=== PATIENT | female | born 1950 | race Caucasian/White ===

== ENCOUNTER → 2017-08-21 10:46 | Outpatient (REF) | payer MEDICARE, SELFPAY ==
[2017-08-21 14:20] LABS: Basophils # 0.1 K/mm3 (0-0.2); Basophils % 1.4 % (0.1-2.0); Eosinophils # 0.1 K/mm3 (0.0-0.4); Hematocrit 46.2 % (37.0-47.0); Hemoglobin 14.3 g/dL (12.2-16.2); Lymphocytes # 1.4 K/mm3 (0.7-4.5); Lymphocytes % 35.6 K/mm3 (10-50); Mean Corpuscular Hemoglobin 29.2 pg (27.0-31.2); Mean Corpuscular Volume 94.2 fl (81-99); Mean Platelet Volume 9.4 fl (7.4-10.4); Monocytes # 0.3 K/mm3 (0.1-1.0); Monocytes % 7.6 % (1.7-9.3); Neutrophils % 52.4 % (37.0-80.0); Platelet Count 212 K/mm3 (142-424); Red Cell Distribution Width 13.1 % (11.5-17.5); White Blood Count 3.8 K/mm3 (4.8-10.8)
[2017-08-21 15:12] LABS: Alanine Aminotransferase 31 U/L (12-78); Albumin Level 3.7 gm/dL (3.4-5.0); Albumin/Globulin Ratio 1.2 (1.1-1.8); Alkaline Phosphatase 86 U/L (46-116); Anion Gap 8.8 mEq/L (5-15); Aspartate Amino Transferase 18 U/L (15-37); Bilirubin,Total 0.8 mg/dL (0.2-1.0); Blood Urea Nitrogen 23 mg/dL (7-18); Calcium 9.4 mg/dL (8.5-10.1); Carbon Dioxide 30 mmol/L (21.0-32.0); Chloride 107 mmol/L (98-107); Chol/HDL Ratio 2.6 (1-3.5); Cholesterol 189 mg/dL (140-200); Creatinine,Serum 1.34 mg/dL (0.55-1.02); Estimated Glomerular Filt Rate 40 ml/min (>60); Free T4 (Free Thyroxine) 1.07 ng/dl (0.76-1.46); GFR (African American) 48 ML/MIN (>60); Glucose 93 mg/dL (74-106); HDL Cholesterol 73 mg/dL (29-89); LDL Cholesterol 100 mg/dL (0-130); Potassium 4.8 mmoL/L (3.5-5.1); Sodium 141 mmol/L (136-145); Thyroid Stimulating Hormone 1.09 uIU/ml (0.358-3.740); Total Protein,Serum 6.7 gm/dL (6.4-8.2); Triglycerides 80 mg/dL (30-200); VLDL Cholesterol 16 mg/dL (0-40)
== END ==
LOC: LAB 10:46
PROVIDERS: Visit Provider Emergency Medicine
DX: I10 Essential (primary) hypertension (principal)
CPT/HCPCS: 80053; 80061; 84439; 84443; 85025

== ENCOUNTER → 2017-09-13 09:31 | Outpatient (CLI) | payer MEDICARE, SELFPAY ==
--- NOTE | 2017-09-13 09:35 | CA_ITS ---
PROCEDURE: 2-D M-mode and color Doppler study INDICATIONS FOR THE TEST: Chest pain COPD Heart MurmurX Tobacco Smoking Palpitations Fatigue Syncope Edema HypertensionXDiabetes Mellitus Rheumatic Fever SOB SERVIN Obesity HyperlipidemiaX Family History HD Additional History PATIENT INFORMATION HEIGHT: 61 WEIGHT:146 GENDER: Female B/P:120/82 2-D/M-MODE INTERPRETATION: 2-D MEASUREMENTS OBSERVED VALUES IN CMS Right Ventricular Dimension (RVDd) 2.8 Interventricular Septum (Thickness)(IVsd) .8 Left Ventricular Internal Dimensions(LVIDd) 4.8 Left Ventricular Posterior Wall (Thickness)(LVPWd) .8 Aortic Root 2.5 Aortic Cusp Separation 1.7 Left Atrial Dimensions (LAD) 3.1 2D 1. Left atrium is mildly enlarged, left ventricle is normal size, there is no concentric left ventricular hypertrophy, visually estimated ejection fraction approximately 40-45%, there appears to be hypokinesis involving mid to distal septum and apical wall. 2. The right atrium and right ventricle are mildly enlarged with normal contractility. 3. The aortic valve is minimally thickened and fibrosed. 4. The mitral and tricuspid valve leaflets are minimally thickened. 5. The pulmonic valve is poorly visualized. 6. No significant pericardial effusion noted. DOPPLER INTERROGATION: Doppler interrogation of the aortic, mitral and tricuspid valvular presence of moderate aortic, mild mitral and tricuspid regurgitation, tricuspid and jet velocity insufficient for calculation of the right ventricular systolic pressure, grade 1% dysfunction seen without tissue Doppler evidence of raised left atrial pressure. CONCLUSION: 1. Mildly enlarged left atrium, normal left ventricular size, visually estimated ejection fraction 40-45% with segmental wall motion abnormality described above, grade 1 diastolic dysfunction seen without tissue Doppler evidence of raised left atrial pressure. 2. Moderate aortic, mild mitral and tricuspid regurgitation 3. No significant pericardial effusion noted.
--- NOTE | 2017-09-13 09:35 | MM_ITS ---
MM Dig screening mamm BI w/CAD CAD Screening COMPARISON: None, previous mammograms performed 20 years ago have been purged INDICATION: There is no personal or family history of breast cancer TECHNIQUE: Standard CC and MLO images were obtained. R2 CAD reviewed. FINDINGS: Moderate fibroglandular densities are seen in central portions of both breast. There benign-appearing calcifications in each breast. There is no suspicious lesion and there are no suspicious microcalcifications. IMPRESSION: Moderate breast density with no suspicious lesion seen BI-RADS Category: 2 Benign Finding(s) RECOMMENDED FOLLOW-UP: 1YR - 1 YEAR FOLLOW-UP (A letter has been sent to the patient regarding results of the study.)
== END ==
PROVIDERS: Family Provider Family Medicine; PCP Emergency Medicine; Visit Provider Emergency Medicine
DX: Z12.31 Encounter for screening mammogram for malignant neoplasm of breast (principal); R01.1 Cardiac murmur, unspecified
CPT/HCPCS: 77067; 93306

== ENCOUNTER → 2017-09-16 12:04 | Outpatient (CLI) | payer MEDICARE, SELFPAY ==
[2017-09-18 12:15] LABS: Occult Blood,Stool Negative (Negative)
== END ==
PROVIDERS: Visit Provider Emergency Medicine
DX: Z79.899 Other long term (current) drug therapy (principal)
CPT/HCPCS: 82272; G0328

== ENCOUNTER → 2017-09-17 11:45 | Outpatient (POV) | payer MEDICARE, SELFPAY ==
[2017-09-18 12:16] LABS: Occult Blood,Stool Negative (Negative)
== END ==
PROVIDERS: Visit Provider Emergency Medicine
DX: Z12.11 Encounter for screening for malignant neoplasm of colon (principal)
CPT/HCPCS: 82272; G0328

== ENCOUNTER → 2017-09-18 11:24 | Outpatient (CLI) | payer MEDICARE, SELFPAY ==
[2017-09-18 12:16] LABS: Occult Blood,Stool Negative (Negative)
== END ==
PROVIDERS: Visit Provider Emergency Medicine
DX: Z79.899 Other long term (current) drug therapy (principal)
CPT/HCPCS: 82272; G0328

== ENCOUNTER → 2019-02-04 14:06 | Outpatient (CLI) | payer MEDICARE, SELFPAY ==
[2019-02-04 14:52] LABS: Basophils % 0.7 % (0.1-2.0); Eosinophils # 0.1 K/mm3 (0.0-0.4); Eosinophils % 3.1 % (0.1-12.0); Hemoglobin 14.1 g/dL (12.2-16.2); Lymphocytes # 1.4 K/mm3 (0.7-4.5); Lymphocytes % 37.6 % (10-50); Mean Corpuscular HGB Conc 32.1 g/dL (31.8-35.4); Mean Corpuscular Hemoglobin 29.7 pg (27.0-31.2); Mean Corpuscular Volume 92.7 fl (81-99); Mean Platelet Volume 8.1 fl (7.4-10.4); Monocytes # 0.3 K/mm3 (0.1-1.0); Monocytes % 7.8 % (1.7-9.3); Neutrophils # 1.9 K/mm3 (1.8-7.8); Neutrophils % 50.8 % (37.0-80.0); Platelet Count 236 K/mm3 (142-424); Red Blood Count 4.75 M/mm3 (4.20-5.40); Red Cell Distribution Width 13.6 % (11.5-17.5); White Blood Count 3.7 K/mm3 (4.8-10.8)
[2019-02-04 15:27] LABS: Alanine Aminotransferase 24 U/L (12-78); Albumin Level 3.7 gm/dL (3.4-5.0); Albumin/Globulin Ratio 1.2 (1.1-1.8); Alkaline Phosphatase 88 U/L (46-116); Anion Gap 13.6 mEq/L (5-15); Aspartate Amino Transferase 20 U/L (15-37); Bilirubin,Total 0.8 mg/dL (0.2-1.0); Blood Urea Nitrogen 23 mg/dL (7-18); Calcium 9.4 mg/dL (8.5-10.1); Carbon Dioxide 26 mmol/L (21.0-32.0); Chloride 105 mmol/L (98-107); Chol/HDL Ratio 2.7 (1-3.5); Cholesterol 170 mg/dL (140-200); Creatinine,Serum 1.43 mg/dL (0.55-1.02); Estimated Glomerular Filt Rate 37 ml/min (>60); Free T4 (Free Thyroxine) 1.12 ng/dl (0.76-1.46); GFR (African American) 44 ML/MIN (>60); Glucose 98 mg/dL (74-106); HDL Cholesterol 63 mg/dL (29-89); LDL Cholesterol 90 mg/dL (0-130); Potassium 4.6 mmoL/L (3.5-5.1); Sodium 140 mmol/L (136-145); Thyroid Stimulating Hormone 1.98 uIU/ml (0.358-3.740); Total Protein,Serum 6.7 gm/dL (6.4-8.2); Triglycerides 85 mg/dL (30-200); VLDL Cholesterol 17 mg/dL (0-40)
[2019-02-06 14:20] LABS: Vitamin D 25 Hydroxy 29.2 ng/mL (30.0-100.0)
== END ==
PROVIDERS: Visit Provider Emergency Medicine
DX: I10 Essential (primary) hypertension (principal); E55.9 Vitamin D deficiency, unspecified
CPT/HCPCS: 80053; 80061; 82652; 84439; 84443; 85025

== ENCOUNTER → 2019-04-23 12:37 | Outpatient (CLI) | payer MEDICARE, SELFPAY ==
--- NOTE | 2019-04-23 12:40 | XR_ITS ---
PROCEDURE: XR FOOT WT BEARING RT 3V CLINICAL INDICATION: pain COMPARISON: No exams were available for comparison FINDINGS: No fracture or dislocation. No lytic or blastic change. There is normal mineralization. There are minimal osteoarthritic change of the 1st MTP joint and at the lateral cuneiform cuboid joint Other findings:None. IMPRESSION: Minimal osteoarthritic change otherwise negative Dictated by: Eleuterio De Leon MD 04/23/2019 14:44 Electronically signed by Eleuterio De Leon MD in [place] 04/23/2019 14:44
--- NOTE | 2019-04-23 12:40 | XR_ITS ---
PROCEDURE: XR FOOT WT BEARING LT 3V CLINICAL INDICATION: pain COMPARISON: No exams were available for comparison FINDINGS: No fracture or dislocation. No lytic or blastic change. There is normal mineralization. 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 Dictated by: Eleuterio De Leon MD 04/23/2019 14:43 Electronically signed by Eleuterio De Leon MD in [place] 04/23/2019 14:43
== END ==
PROVIDERS: PCP Emergency Medicine; Visit Provider Podiatrist
DX: M79.672 Pain in left foot (principal); M79.671 Pain in right foot
CPT/HCPCS: 73630

== ENCOUNTER → 2020-08-11 11:00 | Outpatient (CLI) | payer MEDICARE, SELFPAY ==
[2020-08-11 11:55] LABS: Basophils # 0.1 K/mm3 (0-0.2); Basophils % 1.3 % (0.1-2.0); Eosinophils # 0.1 K/mm3 (0.0-0.4); Eosinophils % 2.8 % (0.1-12.0); Hematocrit 44.3 % (37.0-47.0); Hemoglobin 13.9 g/dL (12.2-16.2); Lymphocytes # 1.4 K/mm3 (0.7-4.5); Mean Corpuscular HGB Conc 31.3 g/dL (31.8-35.4); Mean Corpuscular Hemoglobin 29.2 pg (27.0-31.2); Mean Corpuscular Volume 93.1 fl (81-99); Mean Platelet Volume 7.8 fl (7.4-10.4); Monocytes # 0.2 K/mm3 (0.1-1.0); Neutrophils # 1.9 K/mm3 (1.8-7.8); Platelet Count 203 K/mm3 (142-424); Red Blood Count 4.76 M/mm3 (4.20-5.40); Red Cell Distribution Width 13.7 % (11.5-17.5); White Blood Count 3.6 K/mm3 (4.8-10.8)
[2020-08-11 12:27] LABS: Alanine Aminotransferase 17 U/L (12-78); Albumin Level 4.1 g/dl (3.5-5.0); Albumin/Globulin Ratio 1.6 (1.1-1.8); Alkaline Phosphatase 68 U/L (38-126); Anion Gap 10.2 mEq/L (5-15); Aspartate Amino Transferase 24 U/L (14-36); Bilirubin,Total 0.7 mg/dl (0.2-1.3); Blood Urea Nitrogen 28 mg/dl (7-17); Calcium 10.2 mg/dl (8.4-10.2); Carbon Dioxide 28 mmol/L (22.0-30.0); Chloride 107 mmol/L (98-107); Chol/HDL Ratio 3.2 (1-3.5); Cholesterol 242 mg/dl (140-200); Estimated Glomerular Filt Rate 41 ml/min (>60); GFR (African American) 49 ML/MIN (>60); Globulin 2.6 g/dL (1.3-3.2); Glucose 99 mg/dl (74-100); HDL Cholesterol 76 mg/dl (40-60); Potassium 5.2 mmoL/L (3.5-5.1); Sodium 140 mmol/L (136-145); Total Protein,Serum 6.7 g/dl (6.3-8.2); Triglycerides 104 mg/dl (30-150); VLDL Cholesterol 21 mg/dL (0-40)
[2020-08-11 12:38] LABS: Direct LDL Cholesterol 143.42 mg/dL (100-129)
== END ==
PROVIDERS: Visit Provider Nurse Practitioner Family
DX: I10 Essential (primary) hypertension (principal); E78.5 Hyperlipidemia, unspecified
CPT/HCPCS: 36415; 80053; 80061; 85025

== ENCOUNTER 2020-09-14 15:04 | Emergency (ER) | payer MEDICARE, SELFPAY ==
[2020-09-14 15:05] VITALS: BP 137/72; PULSE 114; RESP 18; TEMP 36.8; O2SAT 97; BMI 29.7
--- NOTE | 2020-09-14 15:25 | HMH.EDGENADL ---
ED Disposition Clinical Impression: [place] injury to finger Disposition: Home, Self-Care Condition on Discharge: Good Instructions: DI for Laceration Repair Additional Instructions: Return for any redness swelling purulent drainage or any other concerns within 8 hours Referrals: Liset Blank [Primary Care Provider] - - Critical Care Critical Care Time: No Attestation: On 09/14/20, the high probability of a clinically significant, sudden or life threatening deterioration of the following system(s) required my full and direct attention, intervention and personal management. The time I documented below is in addition to time spent performing reported procedures but includes the following listed in this critical care notation. Medical Decision Making - Medical Records Medical records reviewed: Yes: I reviewed the patient's medical records. - [place] Inquiry Pt receiving controlled substance: No Vital Signs: 09/14/20 15:05 Temperature 98.2 F Temperature Source Oral Pulse Rate [Left Radial] 114 H Respiratory Rate 18 Blood Pressure [Right Arm] 137/72 Blood Pressure Mean [Right Arm] 93 Blood Pressure Source [Right Arm] Automatic Cuff Blood Pressure Position [Right Arm] Sitting 02 Sat by Pulse Oximetry 97 Oxygen Delivery Method Room Air Medical Decision Narrative: 70-year-old female with fishhook removal. No other injuries visualized and neurovascularly intact. The fishhook was removed with the string method after finger block of the distal right ring finger. No post procedure complications. Plan to discharge home with recommendations for wound management and return precautions General Adult HPI - General Chief complaint: Wound/Laceration Stated complaint: [id number] fishhook in right ring finger Time Seen by Provider: 09/14/20 15:10 Mode of Arrival: Ambulatory Limitations: No Limitations Description of Symptoms (Recalled from ER Triage Doc. by RN): pt was cleaning out her truck when a fish hook got stuff in her right index finger which is still present on arrival to ED - History of Present Illness HPI narrative: Was cleaning out her truck today and got stuck with a lower hook from fishing. She has pain in the distal fingertip constant worse with movement with the harmony still attached. No other injuries or concerns today. Onset (ago): hour(s) (1) Radiation: non-radiation Severity: mild Quality: dull, constant - Related Data Previous Rx's Medication Instructions Recorded atorvastatin 40 mg tablet 40 mg PO QHS #90 tab 12/14/19 benazepril 10 See Rx Instructions .ROUTE 12/14/19 mg-hydrochlorothiazide 12.5 mg .COMPLEX #135 tab tablet metoprolol tartrate 50 mg tablet 75 mg PO DAILY #135 tab 12/14/19 potassium chloride 8 mEq 8 meq PO DAILY #90 cap 12/14/19 capsule,extended release prednisone 10 mg tablet 10 mg PO BID #10 tab 12/14/19 Allergies Allergy/AdvReac Type Severity Reaction Status Date / Time aspirin Allergy Intermediate Nose Bleed Verified 12/14/19 16:00 ibuprofen AdvReac Intermediate Verified 12/14/19 16:00 [facility] History - Hepatitis A Screen Drug use history?: No High risk sexual behaviors?: No History of sexually transmitted infection?: No Currently employed?: No Childcare worker?: No Do you have indoor plumbing?: Yes Do you have electricity?: Yes Attestation statement:: This patient has been screened for Hepatitis A risk factors. Medical History: Reports:: Hyperlipidemia, Hypertension Other Surgeries: Yes: , Tubal Ligation Amputation: No Fractures: No - Social History Smoking Status: Never smoker Alcohol Intake: never Substance Use Type: denies use Occupational Status: employed Housing: house Household Members: family Family Hx:: Stroke, Hypertension, Coronary Artery Disease ROS Obtained: Yes All systems reviewed & no additional complaints - Constitutional Constitutional: Denies chills, Denies fever(s) - Eyes Eyes: Denies blurry visi
[2020-09-14 16:10] VITALS: BP 137/72; PULSE 114; RESP 18; TEMP 36.8; O2SAT 97
== END 2020-09-14 15:44 | disposition home or self-care (01) ==
PROVIDERS: Emergency Provider Emergency Medicine; PCP Pediatrics
DX: S60.454A Superficial foreign body of right ring finger, initial encounter (principal); E78.5 Hyperlipidemia, unspecified; I10 Essential (primary) hypertension; W22.8XXA Striking against or struck by other objects, initial encounter; Y92.89 Other specified places as the place of occurrence of the external cause
CPT/HCPCS: 10120; 99282

== ENCOUNTER → 2020-10-11 11:12 | Outpatient (CLI) | payer MEDICARE, SELFPAY ==
[2020-10-11 12:27] LABS: Chloride 105 mmol/L (98-107); Potassium 4.8 mmoL/L (3.5-5.1); Sodium 138 mmol/L (136-145)
[2020-10-11 12:29] LABS: Blood Urea Nitrogen 28 mg/dl (7-17); Estimated Glomerular Filt Rate 37 ml/min (>60); GFR (African American) 45 ML/MIN (>60)
[2020-10-11 12:30] LABS: Anion Gap 8.8 mEq/L (5-15); Calcium 9.8 mg/dl (8.4-10.2); Carbon Dioxide 29 mmol/L (22.0-30.0); Glucose 93 mg/dl (74-100)
== END ==
PROVIDERS: Visit Provider Nurse Practitioner Family
DX: E87.5 Hyperkalemia (principal); R79.89 Other specified abnormal findings of blood chemistry
CPT/HCPCS: 36415; 80048

== ENCOUNTER → 2023-04-15 15:38 | Outpatient (CLI) | payer MEDICARE, SELFPAY ==
--- NOTE | 2023-04-15 | CA_ITS ---
FINAL REPORT TECHNIQUE: Multiple transverse and longitudinal images were performed of the right femoral-popliteal deep venous system with augmentation and compression maneuvers. CLINICAL HISTORY: Right lower extremity edema with pain in the popliteal fossa x3 weeks COMPARISON: None FINDINGS: Right lower extremity duplex ultrasound demonstrates normal flow in the deep venous system. There is no abnormal echogenicity to suggest thrombus. There is normal compression and augmentation. IMPRESSION: No evidence of right DVT. Reviewed, Interpreted and Dictated by Karol Sotelo MD Transcribed by Narcisa Morocho Authenticated and [facility]
== END ==
PROVIDERS: PCP Nurse Practitioner Family; Visit Provider Nurse Practitioner Family
DX: M79.604 Pain in right leg (principal); I83.90 Asymptomatic varicose veins of unspecified lower extremity
CPT/HCPCS: 93971

== ENCOUNTER 2023-10-31 15:46 | Outpatient (CLI) | payer MEDICARE, SELFPAY ==
--- NOTE | 2023-10-31 15:52 | XR_ITS ---
FINAL REPORT CLINICAL HISTORY: PAINN, JOINT, KNEE RT. FINDINGS: RIGHT KNEE 3 views of the right knee were obtained. There is no acute fracture or dislocation. Visualized joint spaces are normally aligned. Soft tissues are unremarkable. IMPRESSION: No acute bony abnormality. Reviewed, Interpreted and Dictated by Bryan Paulino MD Transcribed by Chio Schwartz Authenticated and [facility]
== END 2023-10-31 23:59 | disposition home or self-care (01) ==
PROVIDERS: PCP Nurse Practitioner Family; Visit Provider Nurse Practitioner Family
DX: M25.561 Pain in right knee (principal)
CPT/HCPCS: 73562

== ENCOUNTER 2023-11-18 15:45 | Outpatient (CLI) | payer MEDICARE, SELFPAY ==
--- NOTE | 2023-11-18 15:48 | MR_ITS ---
FINAL REPORT CLINICAL HISTORY: ACUTE PAIN OF RIGHT KNEE. patient fell 3 months ago and knee pain since. medial sided knee pain. knee instability COMPARISON: None FINDINGS: Multiplanar MR imaging of the right knee was performed without contrast. There is a partial tear of the posterior root of the medial meniscus. There is a small tear of the anterior horn of the lateral meniscus. Medial subluxation is noted of the body of the medial meniscus. The anterior and posterior cruciate ligaments are intact. There is thickening of the proximal medial collateral ligament which may represent sequela from prior partial tear. The patellar and quadriceps tendons are intact. There is no evidence of fracture. No focal abnormality is identified of the articular cartilage. A small joint effusion is seen. The musculature is intact. There is a small popliteal cyst. IMPRESSION: Partial tear posterior root medial meniscus with partial subluxation of the body of the medial meniscus. Small tear anterior horn lateral meniscus. Small joint effusion. Small popliteal cyst. Reviewed, Interpreted and Dictated by Magdaleno Aguilar III, MD Transcribed by Narcisa Morocho Authenticated and [facility]
== END 2023-11-18 23:59 | disposition home or self-care (01) ==
LOC: RAD 15:45
PROVIDERS: PCP Nurse Practitioner Family; Visit Provider Nurse Practitioner Family
DX: M25.561 Pain in right knee (principal); M25.361 Other instability, right knee
CPT/HCPCS: 73721

== ENCOUNTER 2024-07-06 13:07 | Outpatient (CLI) | payer MEDICARE, SELFPAY ==
--- NOTE | 2024-07-06 13:10 | US_ITS ---
FINAL REPORT CLINICAL HISTORY: NISH-CKD STAGE 3 COMPARISON: None FINDINGS: RENAL ULTRASOUND Ultrasound images of the kidneys were obtained. Limited images of the liver parenchyma demonstrate normal echogenicity. The right kidney measures 7.9 cm in length. The left kidney measures 8.4 cm in length. There is no hydronephrosis. There is abnormal increased echogenicity and thinning of the cortex consistent with medical renal disease. There are small bilateral renal cysts measuring up to 1.1 cm. IMPRESSION: Findings consistent with medical renal disease. Small bilateral renal cysts. Reviewed, Interpreted and Dictated by Bryan Paulino MD Transcribed by Tatiana Fagan Authenticated and [facility]
== END 2024-07-06 23:59 | disposition home or self-care (01) ==
LOC: RAD 13:07
PROVIDERS: PCP Nurse Practitioner Family; Visit Provider Nurse Practitioner Family
DX: N18.32 Chronic kidney disease, stage 3b (principal)
CPT/HCPCS: 76770